=== PATIENT | female | born 1965 | race Caucasian/White ===

== ENCOUNTER 2023-08-23 15:45 | Emergency (ER) | payer OTHER, SELFPAY ==
[2023-08-23 15:48] VITALS: BP 143/92
[2023-08-23 16:11] LABS: % Basophils 0.2 % (0-2); % Eosinophils 1.1 % (0-6); % Immature Granulocytes 0.2 % (0-0.5); % Lymphocytes 12.3 % (20.5-51.1); % Monocytes 6.3 % (1.7-9.3); % Neutrophils 79.9 % (42.2-75.2); Absolute Eosinophils 0.1 10^3/uL (0-0.7); Absolute Lymphocytes 1.1 10^3/uL (1.2-3.4); Absolute Monocytes 0.6 10^3/uL (0.1-0.6); Absolute Neutrophils 7.2 10^3/uL (1.4-6.5); Hemoglobin 13.8 g/dL (12.0-16.0); Mean Corp Hgb Conc. 34.5 g/dL (33.0-37.0); Mean Corpuscular Hgb 29.2 pg (27.0-31.0); Mean Corpuscular Volume 84.7 fL (81.0-99.0); Mean Platelet Volume 11.8 fL (7.4-10.4); Nucleated Red Blood Cells % 0 %; Platelet Count 238 10^3/uL (130-400); Red Blood Cell Count 4.72 10^6/uL (4.20-5.40); Red Cell Dist. Width 13.1 % (11.5-14.5); White Blood Cell Count 9.1 10^3/uL (4.8-10.8)
[2023-08-23 16:25] LABS: ALT (SGPT) 26 U/L (0-35); AST (SGOT) 36 U/L (14-36); Albumin 4.9 g/dl (3.5-5.0); Alkaline Phosphatase 122 U/L (38-126); Blood Urea Nitrogen 11 mg/dl (7-17); Calcium 10.2 mg/dl (8.4-10.2); Carbon Dioxide 25 mmol/L (22-30); Chloride 105 mmol/L (98-107); Glucose 97 mg/dl (70-99); Potassium 3.7 mmol/L (3.5-5.1); Sodium 140 mmol/L (135-145); Total Bilirubin 0.9 mg/dl (0.2-1.3); Total Protein 7.8 g/dl (6.3-8.2); eGFR > 60.00
[2023-08-23 17:59] VITALS: BMI 23.6
[2023-08-23 18:00] VITALS: BP 125/58
[2023-08-23] MEDS: NSS 1000 IV (18:17)
[2023-08-23] MEDS: OMNIPAQUE 50 ML PO (18:17)
[2023-08-23] MEDS: ZOFRAN 4 MG IV (18:18)
[2023-08-23 18:20] LABS: Lipase 89 U/L (23-300)
[2023-08-23] MEDS: DILAUDID 0.5 MG IV (18:20)
[2023-08-23 19:00] VITALS: BP 112/75
[2023-08-23 20:00] VITALS: BP 125/76
--- NOTE | 2023-08-23 21:04 | ED.GENMED ---
History of Present Illness
General
Chief Complaint: Abdominal Symptoms
Source: patient
Exam Limitations: none
Time Seen by Provider: 08/23/23 17:28
Nursing documentation reviewed up to this point in time: agreed with
Travel History
Have you had any contact with someone who has COVID-19?: No
Do you have any symptoms of coronavirus? Fever > 100 degrees, chills, cough, shortness of breath, sore throat, loss of taste or smell, muscle aches, or headache?: No
History of Present Illness
History of Present Illness:
Patient to ED with complaint of n/v/d since last PM. Denies fevers but reports chills. Today she noted small amt of blood in stool. Brought to ED by brother for eval.
Past History
Past History
ED Past Medical History: None
ED Past Surgical History: Other (eyes (child), wisdom teeth)
Social History
Tobacco: Non-smoker
Alcohol: None
Drug: None
Review of Systems
Review of Systems
Allergies reviewed?: Yes
All Other Systems: ROS reviewed and negative except as documented in HPI and ROS
Constitutional: Reports chills
EENT: Reports no symptoms
Respiratory: Reports no symptoms
Cardiac: Reports no symptoms
ABD/GI: Reports abdominal pain, nausea, vomiting and diarrhea
: Reports no symptoms
Musculoskeletal: Reports no symptoms
Skin: Reports no symptoms
Neurological: Reports no symptoms
Psychiatric: Reports no symptoms
Phy Exam
General Physical Exam
General Presentation: mild distress
General age: appears stated age
General Skin: warm and dry
General Habitus: normal
General Mental: alert
Gastrointestinal Exam
Gastrointestinal Exam: normal bowel sounds, soft, no organomegaly, non distended and no cva tenderness
Palpation: generalized: Moderate tenderness
Rectal Exam: normal external exam, normal sphincter tone and no stool
Musculoskeletal Exam
Musculoskeletal Exam: full ROM and neuro vasc intact
Skin Exam
Skin Exam: normal color, warm/dry and no rash
Psychiatric Exam
Psychiatric Exam: normal mood/affect
Course
Orders/Labs/Results
Orders:
Orders
08/23/23 16:02
Complete Blood Count/With Diff Urgent
Comprehensive Metabolic Panel Urgent
Lipase Urgent
Comment: ADD ON
08/23/23 17:38
CT Abd/pel W Iv And Oral Contr Urgent
Comment:
Reason For Exam: Lower abdominal pain
HYDROmorphone [Dilaudid] 0.5 mg IV NOW STA
Iohexol [Omnipaque] See Protocol PO NOW STA
Ondansetron Injectable [Zofran] 4 mg IV NOW STA
08/23/23 17:39
Urinalysis Reflex To Culture Urgent
0.9% Sodium Chloride 1000 ml [Nss] 1,000 ml IV BOLUS
08/23/23 17:40
Add On- LAB Urgent
Tests Added?: lipase
08/23/23 21:25
Amoxicillin 875 mg/Clav 125 mg [Augmentin 875 mg/125 mg] 1 tablet PO NOW STA
Abnormal Lab Results
08/23/23
16:02
MPV 11.8 H fL
(7.4-10.4)
Absolute Neuts (auto) 7.2 H 10^3/uL
(1.4-6.5)
Absolute Lymphs (auto) 1.1 L 10^3/uL
(1.2-3.4)
Neutrophils % 79.9 H %
(42.2-75.2)
Lymphocytes % 12.3 L %
(20.5-51.1)
08/23/23 16:02
08/23/23 16:02
Vital Signs
Initial and Last Documented VS:
Initial Vital Signs
Temp Pulse Resp BP Pulse Ox
98.0 F 105 16 143/92 98
08/23/23 15:48 08/23/23 15:48 08/23/23 15:48 08/23/23 15:48 08/23/23 15:48
Last Documented Vital Signs
Temp Pulse Resp BP Pulse Ox
98.0 F 105 16 125/76 98
08/23/23 15:48 08/23/23 15:48 08/23/23 15:48 08/23/23 20:00 08/23/23 20:15
*Radiology
Radiology exam reviewed: radiology read reviewed
*Pulse Oximetry
Patient hypoxic: no
*Critical Care Note
Total Time (30-74mins, 75-104mins- exclusive of procedures): Not Applicable
ED Attending Note
-
Portions of this chart may have been created with voice recognition software.� Occasional wrong word or��sound alike� substitutions may have occurred due to the inherent limitations of voice recognition software.
Discharge Plan
Departure
Patient Disposition: Home (Routine Discharge)
Date of Disposition: 08/23/23
Time of Disposition: 21:25
Patient with high blood pressure during this ER visit?: No
Condition: Good
Covid-19: Not Applicable
Discharge Problem:
Colitis, infectious
Instructions: Clear Liquid Diet, Colitis (DC), Diarrhea, Adult ED
Prescriptions:
New
amoxicillin-pot clavulanate 875-125 mg tablet
1 tab PO BID Qty: 14 0RF
Referrals:
Aubrey Sagastume DO [Family Provider] - Follow up in 2-3 days
Activity Restrictions/Additional Instructions:
Return to the emergency department immediately for any changes in/worsening of your symptoms
Interventions
Interventions:
*Risk Screen - Suicide Last Done: 08/23/23 17:59
*General Assessment Last Done: 08/23/23 17:59
*Neglect/Abuse Screening Last Done: 08/23/23 17:59
ED- Fall Risk Assessment Last Done: 08/23/23 17:59
*ED COVID-19 Vaccine History Last Done: 08/23/23 15:48
OA-Brnavz-Leesvliqcm Assessment Last Done: 08/23/23 17:59
Discharge Date and Time
Print Language: MALAY
[2023-08-23] MEDS: AUGMENTIN 875 MG/125 MG 1 TABLET PO (21:45)
[2023-08-23] MEDS: NORCO 5/325 1 TABLET PO (21:45)
== END 2023-08-23 22:18 | disposition home or self-care (01) ==
LOC: EMR 15:45
PROVIDERS: Emergency Medicine; EMERGENCY PHYSICIAN Emergency Medicine; FAMILY PHYSICIAN Family Medicine
DX: A09 Infectious gastroenteritis and colitis, unspecified (principal)
CPT/HCPCS: 99285; 96374; 96375; 96361; 74177; 80053; 83690; 85025; Q9967